=== PATIENT | female | born 1950 | race Caucasian/White ===

== ENCOUNTER 2018-10-14 17:27 | Inpatient (IN) | payer MEDICARE ==
[2018-10-14 19:11] LABS: WHITE BLOOD COUNT 5.8 10^3/ul (4.8-10.8)
[2018-10-14 19:11] LABS: ADD MAN DIFF? NO; BASOPHILS % 0.7 % (0.0-2.0); EOSINOPHILS # 0.1 10^3/ul (0.0-0.5); EOSINOPHILS % 1.9 % (0.0-7.0); HEMATOCRIT 41.4 % (37.0-47.0); HEMOGLOBIN 13.2 g/dl (12.0-16.0); LYMPHOCYTES # 2.3 10^3/ul (0.8-2.9); LYMPHOCYTES % 38.8 % (15.0-51.0); MEAN CORPUSCULAR HEMOGLOBIN 27.8 pg (29.0-33.0); MEAN CORPUSCULAR HGB CONC 31.9 g/dl (32.0-37.0); MEAN CORPUSCULAR VOLUME 87.2 fl (82.0-101.0); MEAN PLATELET VOLUME 11.3 fl (7.4-10.4); MONOCYTE # 0.3 10^3/ul (0.3-0.9); MONOCYTES % 4.8 % (0.0-11.0); NEUTROPHIL # 3.1 10^3/ul (1.6-7.5); NEUTROPHILS % 53.6 % (39.0-77.0); PLATELET COUNT 261 10^3/UL (140-415); RED BLOOD COUNT 4.75 10^6/ul (4.20-5.40); RED CELL DISTRIBUTION WIDTH 13.1 % (11.5-14.5)
[2018-10-14 19:29] LABS: ANION GAP 9 (5-13); BLOOD UREA NITROGEN 12 mg/dl (7-20); CALCIUM 9.8 mg/dl (8.4-10.2); CARBON DIOXIDE 29 mmol/L (21-31); CHLORIDE 105 mmol/L (97-110); CREATININE 1.02 mg/dl (0.44-1.00); Estimated GFR 54 mL/min (>60); GLUCOSE 170 mg/dl (70-220); SODIUM 143 mmol/L (135-144)
[2018-10-14 19:41] LABS: TROPONIN-I < 0.012 ng/ml (0.000-0.120)
[2018-10-14] MEDS ORDERED: ONDANSETRON 4 MG INJ IV (20:00)
[2018-10-14] MEDS: ASPIRIN 81 MG TAB PO (20:12)
[2018-10-14] MEDS ORDERED: NACL 0.9% 3 ML SYG IV (23:00)
[2018-10-14] MEDS ORDERED: NITROGLYCERIN (SL) 0.4 MG TAB SL (23:00)
[2018-10-14] MEDS: ALPRAZOLAM 1 MG TAB PO (23:50)
[2018-10-15 01:24] LABS: CREATINE KINASE 163 IU/L (23-200)
[2018-10-15 01:37] LABS: CK INDEX 1.2; CK-MB 1.95 ng/ml (0.0-2.4); TROPONIN-I < 0.012 ng/ml (0.000-0.120)
[2018-10-15 06:50] LABS: ADD MAN DIFF? NO
[2018-10-15 06:55] LABS: BASOPHIL # 0.1 10^3/ul (0.0-0.1); BASOPHILS % 0.9 % (0.0-2.0); EOSINOPHILS # 0.2 10^3/ul (0.0-0.5); EOSINOPHILS % 3.2 % (0.0-7.0); HEMATOCRIT 39.5 % (37.0-47.0); HEMOGLOBIN 12.5 g/dl (12.0-16.0); LYMPHOCYTES # 2.7 10^3/ul (0.8-2.9); LYMPHOCYTES % 50.5 % (15.0-51.0); MEAN CORPUSCULAR HEMOGLOBIN 27.6 pg (29.0-33.0); MEAN CORPUSCULAR HGB CONC 31.6 g/dl (32.0-37.0); MEAN CORPUSCULAR VOLUME 87.2 fl (82.0-101.0); MEAN PLATELET VOLUME 11.3 fl (7.4-10.4); MONOCYTE # 0.3 10^3/ul (0.3-0.9); MONOCYTES % 6.1 % (0.0-11.0); NEUTROPHIL # 2.1 10^3/ul (1.6-7.5); NEUTROPHILS % 39.1 % (39.0-77.0); PLATELET COUNT 248 10^3/UL (140-415); RED BLOOD COUNT 4.53 10^6/ul (4.20-5.40); RED CELL DISTRIBUTION WIDTH 13.2 % (11.5-14.5)
[2018-10-15 06:55] LABS: WHITE BLOOD COUNT 5.3 10^3/ul (4.8-10.8)
[2018-10-15] MEDS: PANTOPRAZOLE SODIUM 20 MG TABEC PO ×2 (06:55→18:37)
[2018-10-15] MEDS: ACETAMINOPHEN 325 MG TAB PO (07:04)
[2018-10-15 07:21] LABS: ALANINE AMINOTRANSFERASE 20 IU/L (13-69); ALBUMIN/GLOBULIN RATIO 1.42; ALKALINE PHOSPHATASE 61 IU/L (42-121); ANION GAP 9 (5-13); ASPARTATE AMINO TRANSFERASE 10 IU/L (15-46); BILIRUBIN,INDIRECT 0.2 mg/dl (0-1.1); BILIRUBIN,TOTAL 0.2 mg/dl (0.2-1.3); BLOOD UREA NITROGEN 15 mg/dl (7-20); CALCIUM 9.9 mg/dl (8.4-10.2); CARBON DIOXIDE 25 mmol/L (21-31); CHLORIDE 107 mmol/L (97-110); CHOL/HDL RATIO 5.2 RATIO; CHOLESTEROL 188 mg/dl (100-200); CREATININE 0.71 mg/dl (0.44-1.00); Estimated GFR > 60 mL/min (>60); GLUCOSE 111 mg/dl (70-220); HDL CHOLESTEROL 36 mg/dl (35-98); LDL CHOLESTEROL,CALCULATED 131 mg/dl; MAGNESIUM 2.2 mg/dl (1.7-2.5); POTASSIUM 4.4 mmol/L (3.5-5.1); SODIUM 141 mmol/L (135-144); TOTAL PROTEIN 6.8 g/dl (6.1-8.1); TRIGLYCERIDES 105 mg/dl (0-149)
[2018-10-15 07:27] LABS: HEMOGLOBIN A1C 5.9 % (0-5.9)
[2018-10-15 07:27] LABS: CREATINE KINASE 133 IU/L (23-200)
[2018-10-15 07:37] LABS: CK INDEX 1.1; CK-MB 1.48 ng/ml (0.0-2.4); TROPONIN-I < 0.012 ng/ml (0.000-0.120)
[2018-10-15 07:49] LABS: THYROID STIMULATING HORMONE 0.752 MIU/L (0.465-4.680)
[2018-10-15] MEDS: LISINOPRIL 10 MG TAB PO (10:54)
[2018-10-15] MEDS: ASPIRIN 81 MG TAB PO (10:54)
[2018-10-15] MEDS: HEPARIN 5,000 UNIT/1 ML VIAL SC ×2 (11:06→21:33)
[2018-10-15] MEDS: ACETYLCYSTEINE 600 MG CAP PO ×2 (15:44→21:22)
[2018-10-15] MEDS: RANOLAZINE (SR) 500 MG TAB PO (21:22)
[2018-10-15] MEDS: ATORVASTATIN 80 MG TAB PO (21:22)
[2018-10-15] MEDS: ALPRAZOLAM 1 MG TAB PO (22:32)
[2018-10-16] MEDS: PANTOPRAZOLE SODIUM 20 MG TABEC PO ×2 (05:28→18:23)
[2018-10-16 06:31] LABS: ADD MAN DIFF? NO
[2018-10-16 06:38] LABS: BASOPHIL # 0.1 10^3/ul (0.0-0.1); BASOPHILS % 0.9 % (0.0-2.0); EOSINOPHILS # 0.2 10^3/ul (0.0-0.5); EOSINOPHILS % 3.3 % (0.0-7.0); HEMATOCRIT 40.9 % (37.0-47.0); HEMOGLOBIN 12.8 g/dl (12.0-16.0); LYMPHOCYTES # 2.7 10^3/ul (0.8-2.9); LYMPHOCYTES % 49.4 % (15.0-51.0); MEAN CORPUSCULAR HEMOGLOBIN 27.4 pg (29.0-33.0); MEAN CORPUSCULAR HGB CONC 31.3 g/dl (32.0-37.0); MEAN CORPUSCULAR VOLUME 87.6 fl (82.0-101.0); MEAN PLATELET VOLUME 11.6 fl (7.4-10.4); MONOCYTE # 0.3 10^3/ul (0.3-0.9); MONOCYTES % 5.9 % (0.0-11.0); NEUTROPHIL # 2.2 10^3/ul (1.6-7.5); NEUTROPHILS % 40.1 % (39.0-77.0); PLATELET COUNT 245 10^3/UL (140-415); RED BLOOD COUNT 4.67 10^6/ul (4.20-5.40); RED CELL DISTRIBUTION WIDTH 13.2 % (11.5-14.5)
[2018-10-16 06:38] LABS: WHITE BLOOD COUNT 5.4 10^3/ul (4.8-10.8)
[2018-10-16 06:59] LABS: INR 0.98; PROTIME 13.1 Sec (11.9-14.9)
[2018-10-16 07:06] LABS: CREATINE KINASE 101 IU/L (23-200)
[2018-10-16 07:09] LABS: ALANINE AMINOTRANSFERASE 18 IU/L (13-69); ALBUMIN 3.9 g/dl (3.3-4.9); ALBUMIN/GLOBULIN RATIO 1.14; ALKALINE PHOSPHATASE 78 IU/L (42-121); ANION GAP 11 (5-13); ASPARTATE AMINO TRANSFERASE 12 IU/L (15-46); BILIRUBIN,INDIRECT 0.2 mg/dl (0-1.1); BILIRUBIN,TOTAL 0.2 mg/dl (0.2-1.3); BLOOD UREA NITROGEN 16 mg/dl (7-20); CALCIUM 9.4 mg/dl (8.4-10.2); CARBON DIOXIDE 23 mmol/L (21-31); CHLORIDE 108 mmol/L (97-110); CREATININE 0.74 mg/dl (0.44-1.00); Estimated GFR > 60 mL/min (>60); GLUCOSE 134 mg/dl (70-220); POTASSIUM 4.1 mmol/L (3.5-5.1); SODIUM 142 mmol/L (135-144); TOTAL PROTEIN 7.3 g/dl (6.1-8.1)
[2018-10-16 07:19] LABS: CK INDEX 1.4; CK-MB 1.39 ng/ml (0.0-2.4); TROPONIN-I < 0.012 ng/ml (0.000-0.120)
[2018-10-16] MEDS: ACETYLCYSTEINE 600 MG CAP PO ×2 (07:32→21:45)
[2018-10-16] MEDS: RANOLAZINE (SR) 500 MG TAB PO ×2 (07:32→21:44)
[2018-10-16] MEDS: METOPROLOL (XL) 25 MG TAB PO (07:32)
[2018-10-16] MEDS: LISINOPRIL 10 MG TAB PO (07:32)
[2018-10-16] MEDS: HEPARIN 5,000 UNIT/1 ML VIAL SC (07:32)
[2018-10-16] MEDS: ASPIRIN 81 MG TAB PO (09:12)
[2018-10-16] MEDS: DEXTROSE 5%-0.9% NACL 1,000 ML IV (14:36)
[2018-10-16] MEDS ORDERED: IODIXANOL LOCM 100 ML BTL (15:46)
[2018-10-16] MEDS ORDERED: LIDOCAINE 1% (MDV) 20 ML INJ (15:46)
[2018-10-16] MEDS ORDERED: NITROGLYCERIN (IC) 100 MCG/ML INJ (15:47)
[2018-10-16] MEDS ORDERED: MIDAZOLAM 1 MG/ML 2 ML INJ (15:47)
[2018-10-16] MEDS ORDERED: FENTAnyl 50 MCG/ML VIAL (15:47)
[2018-10-16] MEDS: HOLD all METFORMIN and METFORMIN CONTAINING medications for 48 hours post procedure. Chec XX (17:16)
[2018-10-16] MEDS: SOD CHLORIDE 0.9% 1,000 ML IV (17:19)
[2018-10-16] MEDS: ATORVASTATIN 80 MG TAB PO (21:45)
[2018-10-16] MEDS: ENOXAPARIN 80 MG/0.8 ML SYG SC (22:04)
[2018-10-17] MEDS: ACETAMINOPHEN 325 MG TAB PO (04:27)
[2018-10-17] MEDS: PANTOPRAZOLE SODIUM 20 MG TABEC PO ×2 (05:32→18:39)
[2018-10-17 05:56] LABS: ADD MAN DIFF? NO
[2018-10-17 06:06] LABS: BASOPHILS % 0.4 % (0.0-2.0); EOSINOPHILS # 0.2 10^3/ul (0.0-0.5); EOSINOPHILS % 2.3 % (0.0-7.0); HEMATOCRIT 39.2 % (37.0-47.0); HEMOGLOBIN 12.6 g/dl (12.0-16.0); LYMPHOCYTES % 44.3 % (15.0-51.0); MEAN CORPUSCULAR HEMOGLOBIN 27.8 pg (29.0-33.0); MEAN CORPUSCULAR HGB CONC 32.1 g/dl (32.0-37.0); MEAN CORPUSCULAR VOLUME 86.3 fl (82.0-101.0); MEAN PLATELET VOLUME 11.5 fl (7.4-10.4); MONOCYTE # 0.4 10^3/ul (0.3-0.9); MONOCYTES % 5.4 % (0.0-11.0); NEUTROPHIL # 3.2 10^3/ul (1.6-7.5); NEUTROPHILS % 47.5 % (39.0-77.0); PLATELET COUNT 236 10^3/UL (140-415); RED BLOOD COUNT 4.54 10^6/ul (4.20-5.40); RED CELL DISTRIBUTION WIDTH 13.2 % (11.5-14.5)
[2018-10-17 06:06] LABS: WHITE BLOOD COUNT 6.8 10^3/ul (4.8-10.8)
[2018-10-17 06:31] LABS: ALANINE AMINOTRANSFERASE 18 IU/L (13-69); ALBUMIN 3.8 g/dl (3.3-4.9); ALBUMIN/GLOBULIN RATIO 1.26; ALKALINE PHOSPHATASE 58 IU/L (42-121); ANION GAP 9 (5-13); ASPARTATE AMINO TRANSFERASE 10 IU/L (15-46); BILIRUBIN,INDIRECT 0.2 mg/dl (0-1.1); BILIRUBIN,TOTAL 0.2 mg/dl (0.2-1.3); BLOOD UREA NITROGEN 23 mg/dl (7-20); CALCIUM 9.7 mg/dl (8.4-10.2); CARBON DIOXIDE 23 mmol/L (21-31); CHLORIDE 109 mmol/L (97-110); CHOL/HDL RATIO 5.2 RATIO; CHOLESTEROL 164 mg/dl (100-200); CREATININE 0.91 mg/dl (0.44-1.00); Estimated GFR > 60 mL/min (>60); GLUCOSE 106 mg/dl (70-220); HDL CHOLESTEROL 31 mg/dl (35-98); LDL CHOLESTEROL,CALCULATED 111 mg/dl; SODIUM 141 mmol/L (135-144); TOTAL PROTEIN 6.8 g/dl (6.1-8.1); TRIGLYCERIDES 109 mg/dl (0-149)
[2018-10-17 06:36] LABS: B-TYPE NATRIURETIC PEPTIDE 310 PG/ML (0-125)
[2018-10-17] MEDS: ASPIRIN 81 MG TAB PO (09:12)
[2018-10-17] MEDS: ACETYLCYSTEINE 600 MG CAP PO ×2 (09:13→21:37)
[2018-10-17] MEDS: RANOLAZINE (SR) 500 MG TAB PO ×2 (09:13→21:37)
[2018-10-17] MEDS: METOPROLOL (XL) 25 MG TAB PO (09:13)
[2018-10-17] MEDS: LISINOPRIL 10 MG TAB PO (09:13)
[2018-10-17] MEDS: ENOXAPARIN 80 MG/0.8 ML SYG SC (09:28)
[2018-10-17] MEDS: ATORVASTATIN 80 MG TAB PO (21:37)
[2018-10-18 05:40] LABS: WHITE BLOOD COUNT 6.9 10^3/ul (4.8-10.8)
[2018-10-18 05:40] LABS: ADD MAN DIFF? NO; BASOPHIL # 0.1 10^3/ul (0.0-0.1); BASOPHILS % 0.7 % (0.0-2.0); EOSINOPHILS # 0.2 10^3/ul (0.0-0.5); EOSINOPHILS % 2.3 % (0.0-7.0); HEMATOCRIT 42.5 % (37.0-47.0); HEMOGLOBIN 13.5 g/dl (12.0-16.0); LYMPHOCYTES # 2.8 10^3/ul (0.8-2.9); LYMPHOCYTES % 41.3 % (15.0-51.0); MEAN CORPUSCULAR HEMOGLOBIN 27.4 pg (29.0-33.0); MEAN CORPUSCULAR HGB CONC 31.8 g/dl (32.0-37.0); MEAN CORPUSCULAR VOLUME 86.4 fl (82.0-101.0); MEAN PLATELET VOLUME 11.4 fl (7.4-10.4); MONOCYTE # 0.3 10^3/ul (0.3-0.9); MONOCYTES % 4.7 % (0.0-11.0); NEUTROPHIL # 3.5 10^3/ul (1.6-7.5); NEUTROPHILS % 50.9 % (39.0-77.0); PLATELET COUNT 249 10^3/UL (140-415); RED BLOOD COUNT 4.92 10^6/ul (4.20-5.40); RED CELL DISTRIBUTION WIDTH 13.2 % (11.5-14.5)
[2018-10-18] MEDS: PANTOPRAZOLE SODIUM 20 MG TABEC PO ×2 (05:51→18:00)
[2018-10-18 06:01] LABS: ANION GAP 10 (5-13); BLOOD UREA NITROGEN 20 mg/dl (7-20); CALCIUM 10.2 mg/dl (8.4-10.2); CARBON DIOXIDE 25 mmol/L (21-31); CHLORIDE 106 mmol/L (97-110); CREATININE 0.87 mg/dl (0.44-1.00); Estimated GFR > 60 mL/min (>60); GLUCOSE 110 mg/dl (70-220); PHOSPHORUS 4.4 mg/dl (2.5-4.9); POTASSIUM 4.2 mmol/L (3.5-5.1); SODIUM 141 mmol/L (135-144)
[2018-10-18 06:03] LABS: INR 0.97
[2018-10-18 06:27] LABS: IRON 70 ug/dl (35-150)
[2018-10-18 06:36] LABS: % IRON SATURATION 18 % SAT (22-52); TOTAL IRON BINDING CAPACITY 380 ug/dl (241-421)
[2018-10-18] MEDS ORDERED: INSULIN HUMAN REGULAR 100 UNIT in SOD CHLORIDE 0.9% 99 ML IV (07:00)
[2018-10-18] MEDS ORDERED: EPINEPHrine 4 MG in DEXTROSE 5% 246 ML IV (07:00)
[2018-10-18] MEDS ORDERED: PHENYLephrine 20MG IN 250 ML 250 ML IV (07:00)
[2018-10-18] MEDS ORDERED: NITROGLYCERIN 50 MG/D5W 250 ML BTL (07:12)
[2018-10-18] MEDS ORDERED: DOPamine-D5W 1.6 MG/ML 250 ML (07:12)
[2018-10-18] MEDS ORDERED: TRANEXAMIC ACID 1,000 MG/10 ML VIAL (07:12)
[2018-10-18] MEDS ORDERED: MIDAZOLAM 5 ML ×2 (07:13→10:05)
[2018-10-18] MEDS ORDERED: CEFAZOLIN 1 GM INJ ×3 (08:26→11:39)
[2018-10-18] MEDS ORDERED: POTASSIUM CHLORIDE 40 MEQ INJ (08:31)
[2018-10-18] MEDS ORDERED: ALBUMIN HUMAN 25% 200 ML (08:31)
[2018-10-18] MEDS ORDERED: LIDOCAINE 2% (SDV) 5 ML INJ ×2 (08:31→13:22)
[2018-10-18] MEDS ORDERED: PHENYLephrine 10 MG INJ (08:31)
[2018-10-18] MEDS ORDERED: CA CHLORIDE 10% 10 ML SYRINGE (08:31)
[2018-10-18] MEDS ORDERED: MAGNESIUM SULFATE (MG) 50% 10 ML INJ (08:31)
[2018-10-18] MEDS ORDERED: HEPARIN 1000 UNITS/ML 10 ML INJ ×2 (08:31→09:40)
[2018-10-18] MEDS ORDERED: FUROSEMIDE 20 MG INJ ×2 (08:31→13:13)
[2018-10-18] MEDS ORDERED: MANNITOL 20% 500 ML (08:31)
[2018-10-18] MEDS ORDERED: NA BICARBONATE 8.4% 50 ML SYG ×2 (08:31→10:48)
[2018-10-18] MEDS ORDERED: AMINOCAPROIC ACID 5 GM INJ (08:31)
[2018-10-18] MEDS ORDERED: NORepinephrine 4 MG INJ (08:32)
[2018-10-18] MEDS: LISINOPRIL 10 MG TAB PO (09:00)
[2018-10-18] MEDS: METOPROLOL (XL) 25 MG TAB PO (09:00)
[2018-10-18] MEDS: ACETYLCYSTEINE 600 MG CAP PO (09:00)
[2018-10-18] MEDS: RANOLAZINE (SR) 500 MG TAB PO ×2 (09:00→21:00)
[2018-10-18] MEDS: PAPAVERINE 60 MG INJ (09:09)
[2018-10-18] MEDS: HEPARIN 1000 UNITS/ML 10 ML INJ (09:10)
[2018-10-18] MEDS: GELATIN SIZE 100 SPONGE (09:11)
[2018-10-18] MEDS: THROMBIN 20,000 UNIT VIAL (09:11)
[2018-10-18] MEDS: VANCOMYCIN 1 GM INJ (09:12)
[2018-10-18] MEDS ORDERED: VANCOMYCIN 1 GM INJ (09:48)
[2018-10-18] MEDS ORDERED: PROTAMINE 250 MG INJ (12:46)
[2018-10-18] MEDS ORDERED: THROMBIN 20,000 UNIT VIAL (13:05)
[2018-10-18] MEDS ORDERED: SURGIFOAM POWDER 1 GM KIT (13:05)
[2018-10-18] MEDS ORDERED: ETOMIDATE 20 MG INJ (13:22)
[2018-10-18] MEDS ORDERED: ROCURONIUM 50 MG INJ (13:22)
[2018-10-18] MEDS ORDERED: MEPERIDINE 25 MG INJ IV (15:00)
[2018-10-18] MEDS ORDERED: DIPHENHYDRAMINE 50 MG INJ IV (15:00)
[2018-10-18] MEDS ORDERED: ALBUMIN HUMAN 5% 250 ML IV (15:00)
[2018-10-18] MEDS ORDERED: ONDANSETRON 4 MG INJ IV ×2 (15:00→16:30)
[2018-10-18] MEDS ORDERED: MIDAZOLAM 1 MG/ML 2 ML INJ IV (15:00)
[2018-10-18] MEDS ORDERED: hydrALAzine 20 MG INJ IV (15:00)
[2018-10-18] MEDS ORDERED: EPHEDrine 25 MG/5 ML SYG IV (15:00)
[2018-10-18] MEDS ORDERED: FENTAnyl 50 MCG/ML VIAL IV (15:00)
[2018-10-18] MEDS ORDERED: LORAZEPAM 2 MG INJ IV (15:00)
[2018-10-18] MEDS: NITROGLYCERIN 50 MG/D5W (PMX) 250 ML IV (15:09)
[2018-10-18] MEDS: DOPamine-D5W 1.6 MG/ML 250 ML IV (15:09)
[2018-10-18 15:24] LABS: ANION GAP 11 (5-13); BLOOD UREA NITROGEN 17 mg/dl (7-20); CARBON DIOXIDE 25 mmol/L (21-31); CHLORIDE 111 mmol/L (97-110); CREATININE 0.87 mg/dl (0.44-1.00); Estimated GFR > 60 mL/min (>60); GLUCOSE 123 mg/dl (70-220); MAGNESIUM 3.1 mg/dl (1.7-2.5); PHOSPHORUS 3.9 mg/dl (2.5-4.9); POTASSIUM 3.6 mmol/L (3.5-5.1); SODIUM 147 mmol/L (135-144)
[2018-10-18 15:26] LABS: INR 1.32; PARTIAL THROMBOPLASTIN TIME 29.2 Sec (23.0-35.0); PROTIME 16.5 Sec (11.9-14.9); PT RATIO 1.3
[2018-10-18 15:50] LABS: AADO2 Arterial 367.1 mmHg (7.0-24.0); Arterial Base Excess 1.3 mmol/L (-3.0-3); Arterial Blood Gas Oxygen Sat 95.5 mmHG (95.0-98.0); Arterial COHb 0.1 % (0.0-3.0); Arterial Fraction of Oxyhgb 95.1 % (93.0-99.0); Arterial HCO3 26.5 mmol/L (22.0-26.0); Arterial MetHb 0.3 % (0.0-1.5); Arterial pCO2 44.3 mmhg (35-45); MODE VENT - AC; Site A-Line
[2018-10-18 15:57] LABS: HEMATOCRIT 37.6 % (37.0-47.0); HEMOGLOBIN 12.1 g/dl (12.0-16.0); MEAN CORPUSCULAR HEMOGLOBIN 27.7 pg (29.0-33.0); MEAN CORPUSCULAR HGB CONC 32.2 g/dl (32.0-37.0); MEAN PLATELET VOLUME 11.1 fl (7.4-10.4); PLATELET COUNT 139 10^3/UL (140-415); POSITIVE DIFF @See below; RED BLOOD COUNT 4.37 10^6/ul (4.20-5.40)
[2018-10-18 15:57] LABS: WHITE BLOOD COUNT 11.1 10^3/ul (4.8-10.8)
[2018-10-18 15:58] LABS: ADD MAN DIFF? YES; MODE VENT - AC; MetHgb Mixed Venous 0.4 %; Mixed Venous COHb 0.2 %; Mixed Venous Fraction OxyHgb 61.4 %; Mixed Venous Oxygen Sat 61.8 mmHG (65.0-75.0); Mixed Venous Total Hemglobin 13.2 g/dl; Sample Type BLMV; Site VENOUS LINE
[2018-10-18] MEDS: FENTAnyl 50 MCG/ML VIAL IV (16:03)
[2018-10-18] MEDS ORDERED: HYDROmorphONE 0.5 MG/0.5 ML SYG IV (16:30)
[2018-10-18] MEDS ORDERED: MAGNESIUM SULFATE 1 GM/D5W 100 ML IVPB (16:30)
[2018-10-18] MEDS ORDERED: ACETAMINOPHEN 650 MG SUPP PR (16:30)
[2018-10-18 16:32] LABS: ANISOCYTOSIS 3+ (0-0); BAND NEUTROPHILS #M 1.7 10^3/ul (0.0-0.6); BAND NEUTROPHILS % (M) 16 % (0-4); GIANT THROMBO% (M) 1 % (0-0); LYMPHOCYTES #M 3.7 10^3/ul (0.8-2.9); LYMPHOCYTES % (M) 34 % (15-51); MICROCYTOSIS 3+ (0-0); PLATELET ESTIMATE DECREASED; PLATELET MORPHOLOGY COMMENT @See below; POIKILOCYTOSIS 1+ (0-0); POLYCHROMASIA 1+ (0-0); REACTIVE LYMPHOCYTES #M 0.4 10^3/ul (0.0-0.0); REACTIVE LYMPHOCYTES% (M) 4 % (0-0); SEG NEUT #M 5.3 10^3/ul (1.6-7.5); SEGMENTED NEUTROPHILS (M) % 46 % (39-77); SMUDGE%M 7 % (0-0)
[2018-10-18] MEDS: HYDROmorphONE 0.5 MG/0.5 ML SYG IV ×3 (16:48→21:19)
[2018-10-18] MEDS: POTASSIUM CHLORIDE 50 ML IVPB ×3 (16:52→18:45)
[2018-10-18] MEDS: INSULIN ASPART [NOVOLOG] 3 ML PEN SC ×2 (17:00→21:54)
[2018-10-18] MEDS: CEFAZOLIN 1 GM/50 ML (PMX) 50 ML IVPB (17:17)
[2018-10-18] MEDS: ALBUMIN HUMAN 5% 250 ML IV ×2 (17:19→17:42)
[2018-10-18] MEDS: morphine 2 MG INJ IV ×3 (17:24→18:56)
[2018-10-18] MEDS: LIDOCAINE 5% PATCH TD (18:25)
[2018-10-18] MEDS: POTASSIUM CHLORIDE 40 MEQ, CALCIUM CHLORIDE 10% 1 GM in DEXTROSE 5%-0.225% NACL 1,000 ML IV (18:42)
[2018-10-18] MEDS: ATORVASTATIN 80 MG TAB PO (21:00)
[2018-10-18 21:14] LABS: ADD MAN DIFF? NO
[2018-10-18 21:18] LABS: WHITE BLOOD COUNT 9.6 10^3/ul (4.8-10.8)
[2018-10-18 21:18] LABS: BASOPHILS % 0.3 % (0.0-2.0); EOSINOPHILS % 0.2 % (0.0-7.0); HEMOGLOBIN 10.5 g/dl (12.0-16.0); LYMPHOCYTES # 0.9 10^3/ul (0.8-2.9); MEAN CORPUSCULAR HEMOGLOBIN 27.9 pg (29.0-33.0); MEAN CORPUSCULAR HGB CONC 31.8 g/dl (32.0-37.0); MEAN CORPUSCULAR VOLUME 87.8 fl (82.0-101.0); MEAN PLATELET VOLUME 10.8 fl (7.4-10.4); MONOCYTE # 0.6 10^3/ul (0.3-0.9); MONOCYTES % 5.8 % (0.0-11.0); NEUTROPHIL # 8.1 10^3/ul (1.6-7.5); NEUTROPHILS % 84.1 % (39.0-77.0); PLATELET COUNT 148 10^3/UL (140-415); RED BLOOD COUNT 3.76 10^6/ul (4.20-5.40); RED CELL DISTRIBUTION WIDTH 13.4 % (11.5-14.5)
[2018-10-18] MEDS: FAMOTIDINE 20 MG INJ IV (21:18)
[2018-10-18 21:37] LABS: INR 1.18; PROTIME 15.1 Sec (11.9-14.9); PT RATIO 1.2
[2018-10-18 21:38] LABS: PARTIAL THROMBOPLASTIN TIME 32.8 Sec (23.0-35.0)
[2018-10-18 21:44] LABS: ANION GAP 7 (5-13); BLOOD UREA NITROGEN 16 mg/dl (7-20); CALCIUM 8.6 mg/dl (8.4-10.2); CARBON DIOXIDE 25 mmol/L (21-31); CHLORIDE 115 mmol/L (97-110); CREATININE 0.93 mg/dl (0.44-1.00); Estimated GFR > 60 mL/min (>60); GLUCOSE 197 mg/dl (70-220); MAGNESIUM 2.6 mg/dl (1.7-2.5); PHOSPHORUS 3.4 mg/dl (2.5-4.9); POTASSIUM 4.8 mmol/L (3.5-5.1); SODIUM 147 mmol/L (135-144)
[2018-10-19] MEDS: HYDROmorphONE 0.5 MG/0.5 ML SYG IV ×3 (00:11→12:08)
[2018-10-19] MEDS: CEFAZOLIN 1 GM/50 ML (PMX) 50 ML IVPB ×2 (00:56→09:34)
[2018-10-19] MEDS ORDERED: DEXTROSE 50% 50 ML SYRINGE IV ×4 (01:00→15:30)
[2018-10-19] MEDS: INSULIN ASPART [NOVOLOG] 3 ML PEN SC ×6 (01:00→20:47)
[2018-10-19] MEDS: ACCU-CHEK XX ×14 (01:05→14:09)
[2018-10-19] MEDS: INSULIN HUMAN REGULAR 100 UNIT in SOD CHLORIDE 0.9% 99 ML IV (01:35)
[2018-10-19] MEDS: ONDANSETRON 4 MG INJ IV ×2 (01:53→08:21)
[2018-10-19] MEDS: OXYCODONE/ACETAMINOPHEN (5/325) TAB PO ×6 (03:31→22:56)
[2018-10-19 04:37] LABS: Arterial Base Excess -0.1 mmol/L (-3.0-3); Arterial Blood Gas Oxygen Sat 94.5 mmHG (95.0-98.0); Arterial COHb 0.3 % (0.0-3.0); Arterial HCO3 26.1 mmol/L (22.0-26.0); Arterial MetHb 0.2 % (0.0-1.5); Arterial pCO2 49.4 mmhg (35-45); Blood Gas PS 12; MODE NASAL CANNULA; MODE VENT - CPAP; MetHgb Mixed Venous 0.4 %; Mixed Venous COHb 0.3 %; Mixed Venous Fraction OxyHgb 58.3 %; Mixed Venous Oxygen Sat 58.7 mmHG (65.0-75.0); Mixed Venous Total Hemglobin 11.7 g/dl; Sample Type BLMV; Site A-Line; Site VENOUS LINE
[2018-10-19 05:06] LABS: AADO2 Arterial 82.1 mmHg (7.0-24.0); Arterial Base Excess 0.1 mmol/L (-3.0-3); Arterial Blood Gas Oxygen Sat 94.5 mmHG (95.0-98.0); Arterial COHb 0.1 % (0.0-3.0); Arterial Fraction of Oxyhgb 94.2 % (93.0-99.0); Arterial HCO3 25.8 mmol/L (22.0-26.0); Arterial MetHb 0.2 % (0.0-1.5); Arterial pCO2 46.3 mmhg (35-45); MODE NASAL CANNULA; Site A-Line
[2018-10-19 05:11] LABS: ADD MAN DIFF? NO
[2018-10-19 05:18] LABS: WHITE BLOOD COUNT 8.7 10^3/ul (4.8-10.8)
[2018-10-19 05:18] LABS: BASOPHILS % 0.2 % (0.0-2.0); HEMATOCRIT 34.3 % (37.0-47.0); HEMOGLOBIN 10.5 g/dl (12.0-16.0); LYMPHOCYTES # 0.8 10^3/ul (0.8-2.9); LYMPHOCYTES % 9.2 % (15.0-51.0); MEAN CORPUSCULAR HEMOGLOBIN 27.3 pg (29.0-33.0); MEAN CORPUSCULAR HGB CONC 30.6 g/dl (32.0-37.0); MEAN CORPUSCULAR VOLUME 89.1 fl (82.0-101.0); MEAN PLATELET VOLUME 11.6 fl (7.4-10.4); MONOCYTE # 0.6 10^3/ul (0.3-0.9); MONOCYTES % 6.5 % (0.0-11.0); NEUTROPHIL # 7.3 10^3/ul (1.6-7.5); NEUTROPHILS % 83.6 % (39.0-77.0); PLATELET COUNT 159 10^3/UL (140-415); RED BLOOD COUNT 3.85 10^6/ul (4.20-5.40); RED CELL DISTRIBUTION WIDTH 13.7 % (11.5-14.5)
[2018-10-19 05:40] LABS: INR 1.13; PROTIME 14.6 Sec (11.9-14.9); PT RATIO 1.1
[2018-10-19 05:41] LABS: PARTIAL THROMBOPLASTIN TIME 35.9 Sec (23.0-35.0)
[2018-10-19 05:42] LABS: ANION GAP 9 (5-13); BLOOD UREA NITROGEN 19 mg/dl (7-20); CALCIUM 9.1 mg/dl (8.4-10.2); CARBON DIOXIDE 26 mmol/L (21-31); CHLORIDE 112 mmol/L (97-110); CREATININE 1.05 mg/dl (0.44-1.00); Estimated GFR 52 mL/min (>60); GLUCOSE 141 mg/dl (70-220); MAGNESIUM 2.5 mg/dl (1.7-2.5); POTASSIUM 4.8 mmol/L (3.5-5.1); SODIUM 147 mmol/L (135-144)
[2018-10-19] MEDS: PANTOPRAZOLE SODIUM 20 MG TABEC PO ×2 (06:12→17:51)
[2018-10-19] MEDS: ALBUMIN HUMAN 5% 250 ML IV (06:44)
[2018-10-19] MEDS: FAMOTIDINE 20 MG INJ IV (07:37)
[2018-10-19] MEDS: ACETAMINOPHEN 325 MG TAB PO (08:08)
[2018-10-19] MEDS: METOPROLOL (XL) 25 MG TAB PO ×2 (09:00→20:43)
[2018-10-19] MEDS: POTASSIUM CHLORIDE 40 MEQ, CALCIUM CHLORIDE 10% 1 GM in DEXTROSE 5%-0.225% NACL 1,000 ML IV (09:22)
[2018-10-19] MEDS: ASPIRIN 325 MG TAB PO (09:34)
[2018-10-19] MEDS: HYDROmorphONE 1 MG/ML SYG IV (09:58)
[2018-10-19] MEDS: FUROSEMIDE 20 MG INJ IV (10:10)
[2018-10-19] MEDS: LIDOCAINE 5% PATCH TD ×2 (14:12→19:55)
[2018-10-19 14:36] LABS: ANION GAP 11 (5-13); BLOOD UREA NITROGEN 21 mg/dl (7-20); CALCIUM 9.1 mg/dl (8.4-10.2); CARBON DIOXIDE 25 mmol/L (21-31); CHLORIDE 107 mmol/L (97-110); CREATININE 1.11 mg/dl (0.44-1.00); Estimated GFR 49 mL/min (>60); GLUCOSE 140 mg/dl (70-220); POTASSIUM 4.2 mmol/L (3.5-5.1); SODIUM 143 mmol/L (135-144)
[2018-10-19] MEDS ORDERED: GLUCOSE GEL 15 GRAM TUBE BUCCAL (15:30)
[2018-10-19] MEDS ORDERED: GLUCOSE GEL 15 GRAM TUBE PO ×2 (15:30)
[2018-10-19] MEDS ORDERED: GLUCAGON 1 MG INJ IM (15:30)
[2018-10-19] MEDS: morphine 4 MG/ML VIAL IV (17:10)
[2018-10-19] MEDS: ATORVASTATIN 80 MG TAB PO (20:44)
[2018-10-19] MEDS: ALBUMIN HUMAN 5% 500 ML IV (22:07)
[2018-10-20] MEDS: INSULIN ASPART [NOVOLOG] 3 ML PEN SC ×6 (01:00→20:58)
[2018-10-20] MEDS: OXYCODONE/ACETAMINOPHEN (5/325) TAB PO ×3 (01:25→08:41)
[2018-10-20] MEDS: POTASSIUM CHLORIDE 40 MEQ, CALCIUM CHLORIDE 10% 1 GM in DEXTROSE 5%-0.225% NACL 1,000 ML IV ×2 (02:32→10:27)
[2018-10-20 05:10] LABS: ADD MAN DIFF? NO
[2018-10-20 05:15] LABS: BASOPHILS % 0.3 % (0.0-2.0); EOSINOPHILS % 0.1 % (0.0-7.0); HEMATOCRIT 26.5 % (37.0-47.0); HEMOGLOBIN 8.1 g/dl (12.0-16.0); LYMPHOCYTES # 1.7 10^3/ul (0.8-2.9); LYMPHOCYTES % 23.1 % (15.0-51.0); MEAN CORPUSCULAR HEMOGLOBIN 27.4 pg (29.0-33.0); MEAN CORPUSCULAR HGB CONC 30.6 g/dl (32.0-37.0); MEAN CORPUSCULAR VOLUME 89.5 fl (82.0-101.0); MEAN PLATELET VOLUME 11.9 fl (7.4-10.4); MONOCYTE # 0.4 10^3/ul (0.3-0.9); MONOCYTES % 5.5 % (0.0-11.0); NEUTROPHIL # 5.3 10^3/ul (1.6-7.5); NEUTROPHILS % 70.7 % (39.0-77.0); PLATELET COUNT 113 10^3/UL (140-415); RED BLOOD COUNT 2.96 10^6/ul (4.20-5.40); RED CELL DISTRIBUTION WIDTH 13.5 % (11.5-14.5)
[2018-10-20 05:15] LABS: WHITE BLOOD COUNT 7.4 10^3/ul (4.8-10.8)
[2018-10-20] MEDS: PANTOPRAZOLE SODIUM 20 MG TABEC PO ×2 (05:27→17:28)
[2018-10-20] MEDS: morphine 2 MG INJ IV ×3 (05:33→21:44)
[2018-10-20 05:46] LABS: ALANINE AMINOTRANSFERASE 22 IU/L (13-69); ALBUMIN 3.7 g/dl (3.3-4.9); ALBUMIN/GLOBULIN RATIO 1.54; ALKALINE PHOSPHATASE 38 IU/L (42-121); ANION GAP 8 (5-13); ASPARTATE AMINO TRANSFERASE 22 IU/L (15-46); BILIRUBIN,INDIRECT 0.6 mg/dl (0-1.1); BILIRUBIN,TOTAL 0.6 mg/dl (0.2-1.3); BLOOD UREA NITROGEN 21 mg/dl (7-20); CARBON DIOXIDE 27 mmol/L (21-31); CHLORIDE 106 mmol/L (97-110); CREATININE 0.84 mg/dl (0.44-1.00); Estimated GFR > 60 mL/min (>60); GLUCOSE 131 mg/dl (70-220); MAGNESIUM 2.4 mg/dl (1.7-2.5); POTASSIUM 4.4 mmol/L (3.5-5.1); SODIUM 141 mmol/L (135-144); TOTAL PROTEIN 6.1 g/dl (6.1-8.1)
[2018-10-20] MEDS: ASPIRIN 325 MG TAB PO (08:36)
[2018-10-20] MEDS: METOPROLOL (XL) 25 MG TAB PO ×2 (08:37→20:55)
[2018-10-20] MEDS: LIDOCAINE 5% PATCH TD (08:40)
[2018-10-20] MEDS: SOD FERRIC GLUC COMPLX 125 MG in SOD CHLORIDE 0.9% 100 ML IVPB (12:44)
[2018-10-20 13:34] LABS: ADD UMIC YES; UR ASCORBIC ACID NEGATIVE (NEGATIVE); UR BACTERIA FEW /HPF (NONE SEEN); UR BILIRUBIN (Dip) NEGATIVE (NEGATIVE); UR BLOOD (Dip) NEGATIVE (NEGATIVE); UR CLARITY CLEAR (CLEAR); UR COLOR YELLOW (YELLOW); UR GLUCOSE (Dip) NEGATIVE (NEGATIVE); UR KETONES (Dip) NEGATIVE (NEGATIVE); UR LEUKOCYTE ESTERASE (Dip) TRACE Leu/ul (NEGATIVE); UR NITRITE (Dip) NEGATIVE (NEGATIVE); UR RBC 3 /HPF (0-5); UR SPECIFIC GRAVITY (Dip) 1.029 (1.003-1.030); UR SQUAMOUS EPITHELIAL CELL FEW /HPF (FEW); UR TOTAL PROTEIN (Dip) NEGATIVE (NEGATIVE); UR UROBILINOGEN (Dip) NEGATIVE (NEGATIVE); UR WBC 10 /HPF (0-5)
[2018-10-20 14:05] LABS: CREATININE,URINE RANDOM 147.26 mg/dl (20-320)
[2018-10-20 14:06] LABS: SODIUM,URINE RANDOM < 13 mmol/L (30-90)
[2018-10-20] MEDS: ONDANSETRON 4 MG INJ IV (17:32)
[2018-10-20] MEDS: ATORVASTATIN 80 MG TAB PO (20:54)
[2018-10-21] MEDS: INSULIN ASPART [NOVOLOG] 3 ML PEN SC ×6 (01:16→21:00)
[2018-10-21] MEDS: morphine 2 MG INJ IV (04:48)
[2018-10-21] MEDS: PANTOPRAZOLE SODIUM 20 MG TABEC PO ×2 (04:58→18:03)
[2018-10-21 05:02] LABS: ADD MAN DIFF? NO
[2018-10-21 05:10] LABS: BASOPHILS % 0.4 % (0.0-2.0); EOSINOPHILS # 0.1 10^3/ul (0.0-0.5); HEMATOCRIT 26.3 % (37.0-47.0); HEMOGLOBIN 8.2 g/dl (12.0-16.0); MEAN CORPUSCULAR HEMOGLOBIN 27.3 pg (29.0-33.0); MEAN CORPUSCULAR HGB CONC 31.2 g/dl (32.0-37.0); MEAN CORPUSCULAR VOLUME 87.7 fl (82.0-101.0); MEAN PLATELET VOLUME 12.2 fl (7.4-10.4); MONOCYTE # 0.4 10^3/ul (0.3-0.9); MONOCYTES % 5.4 % (0.0-11.0); NEUTROPHIL # 5.2 10^3/ul (1.6-7.5); NEUTROPHILS % 66.7 % (39.0-77.0); PLATELET COUNT 128 10^3/UL (140-415); RED CELL DISTRIBUTION WIDTH 13.3 % (11.5-14.5)
[2018-10-21 05:10] LABS: WHITE BLOOD COUNT 7.8 10^3/ul (4.8-10.8)
[2018-10-21 05:54] LABS: ANION GAP 5 (5-13); BLOOD UREA NITROGEN 15 mg/dl (7-20); CARBON DIOXIDE 30 mmol/L (21-31); CHLORIDE 104 mmol/L (97-110); CREATININE 0.69 mg/dl (0.44-1.00); Estimated GFR > 60 mL/min (>60); GLUCOSE 143 mg/dl (70-220); MAGNESIUM 2.4 mg/dl (1.7-2.5); POTASSIUM 4.3 mmol/L (3.5-5.1); SODIUM 139 mmol/L (135-144)
[2018-10-21] MEDS: ASPIRIN 325 MG TAB PO (09:32)
[2018-10-21] MEDS: METOPROLOL (XL) 25 MG TAB PO ×2 (09:32→20:49)
[2018-10-21] MEDS: LIDOCAINE 5% PATCH TD (09:33)
[2018-10-21] MEDS: POTASSIUM CHLORIDE 40 MEQ, CALCIUM CHLORIDE 10% 1 GM in DEXTROSE 5%-0.225% NACL 1,000 ML IV (13:16)
[2018-10-21] MEDS: SOD FERRIC GLUC COMPLX 125 MG in SOD CHLORIDE 0.9% 100 ML IVPB (13:16)
[2018-10-21 14:26] LABS: CREATININE, RANDOM URINE 143 mg/dL (20-275); MICROALBUMIN 2.3 mg/dL; MICROALBUMIN/CREATININE RATIO 16 (<30)
[2018-10-21] MEDS: ATORVASTATIN 80 MG TAB PO (20:48)
[2018-10-22] MEDS: INSULIN ASPART [NOVOLOG] 3 ML PEN SC ×6 (01:00→20:27)
[2018-10-22] MEDS: morphine 2 MG INJ IV ×2 (02:52→23:55)
[2018-10-22 05:17] LABS: ADD MAN DIFF? NO
[2018-10-22 05:20] LABS: BASOPHILS % 0.5 % (0.0-2.0); EOSINOPHILS # 0.1 10^3/ul (0.0-0.5); EOSINOPHILS % 1.3 % (0.0-7.0); HEMATOCRIT 27.7 % (37.0-47.0); HEMOGLOBIN 8.5 g/dl (12.0-16.0); LYMPHOCYTES # 2.3 10^3/ul (0.8-2.9); MEAN CORPUSCULAR HEMOGLOBIN 27.2 pg (29.0-33.0); MEAN CORPUSCULAR HGB CONC 30.7 g/dl (32.0-37.0); MEAN CORPUSCULAR VOLUME 88.8 fl (82.0-101.0); MEAN PLATELET VOLUME 11.3 fl (7.4-10.4); MONOCYTE # 0.5 10^3/ul (0.3-0.9); MONOCYTES % 6.2 % (0.0-11.0); NEUTROPHIL # 4.8 10^3/ul (1.6-7.5); NEUTROPHILS % 62.2 % (39.0-77.0); NUCLEATED RED BLOOD CELLS% 0.5 /100WBC (0.0-0.0); PLATELET COUNT 175 10^3/UL (140-415); RED BLOOD COUNT 3.12 10^6/ul (4.20-5.40); RED CELL DISTRIBUTION WIDTH 13.4 % (11.5-14.5)
[2018-10-22 05:20] LABS: WHITE BLOOD COUNT 7.8 10^3/ul (4.8-10.8)
[2018-10-22 05:43] LABS: ANION GAP 4 (5-13); BLOOD UREA NITROGEN 15 mg/dl (7-20); CALCIUM 8.7 mg/dl (8.4-10.2); CARBON DIOXIDE 30 mmol/L (21-31); CHLORIDE 106 mmol/L (97-110); CREATININE 0.72 mg/dl (0.44-1.00); Estimated GFR > 60 mL/min (>60); GLUCOSE 118 mg/dl (70-220); SODIUM 140 mmol/L (135-144)
[2018-10-22] MEDS: PANTOPRAZOLE SODIUM 20 MG TABEC PO ×2 (06:29→17:50)
[2018-10-22] MEDS: METOPROLOL (XL) 25 MG TAB PO ×2 (08:50→20:27)
[2018-10-22] MEDS: ASPIRIN 325 MG TAB PO (08:50)
[2018-10-22] MEDS: LIDOCAINE 5% PATCH TD (08:53)
[2018-10-22] MEDS: SOD FERRIC GLUC COMPLX 125 MG in SOD CHLORIDE 0.9% 100 ML IVPB (15:34)
[2018-10-22] MEDS: ATORVASTATIN 80 MG TAB PO (20:26)
[2018-10-23] MEDS: INSULIN ASPART [NOVOLOG] 3 ML PEN SC ×6 (01:00→21:00)
[2018-10-23 05:27] LABS: ADD MAN DIFF? NO
[2018-10-23] MEDS: PANTOPRAZOLE SODIUM 20 MG TABEC PO ×2 (05:27→18:00)
[2018-10-23 05:41] LABS: BASOPHILS % 0.5 % (0.0-2.0); EOSINOPHILS # 0.1 10^3/ul (0.0-0.5); EOSINOPHILS % 1.9 % (0.0-7.0); HEMATOCRIT 27.7 % (37.0-47.0); HEMOGLOBIN 8.7 g/dl (12.0-16.0); LYMPHOCYTES # 2.4 10^3/ul (0.8-2.9); LYMPHOCYTES % 32.1 % (15.0-51.0); MEAN CORPUSCULAR HEMOGLOBIN 27.9 pg (29.0-33.0); MEAN CORPUSCULAR HGB CONC 31.4 g/dl (32.0-37.0); MEAN CORPUSCULAR VOLUME 88.8 fl (82.0-101.0); MEAN PLATELET VOLUME 11.3 fl (7.4-10.4); MONOCYTE # 0.4 10^3/ul (0.3-0.9); MONOCYTES % 4.8 % (0.0-11.0); NEUTROPHIL # 4.5 10^3/ul (1.6-7.5); NEUTROPHILS % 59.9 % (39.0-77.0); NUCLEATED RED BLOOD CELLS # 0.1 10^3/ul (0.0-0.0); NUCLEATED RED BLOOD CELLS% 1.5 /100WBC (0.0-0.0); PLATELET COUNT 205 10^3/UL (140-415); RED BLOOD COUNT 3.12 10^6/ul (4.20-5.40); RED CELL DISTRIBUTION WIDTH 13.3 % (11.5-14.5)
[2018-10-23 05:41] LABS: WHITE BLOOD COUNT 7.6 10^3/ul (4.8-10.8)
[2018-10-23 05:58] LABS: ANION GAP 4 (5-13); BLOOD UREA NITROGEN 16 mg/dl (7-20); CALCIUM 8.3 mg/dl (8.4-10.2); CARBON DIOXIDE 27 mmol/L (21-31); CHLORIDE 108 mmol/L (97-110); CREATININE 0.67 mg/dl (0.44-1.00); Estimated GFR > 60 mL/min (>60); GLUCOSE 89 mg/dl (70-220); POTASSIUM 3.3 mmol/L (3.5-5.1); SODIUM 139 mmol/L (135-144)
[2018-10-23] MEDS: morphine 2 MG INJ IV (07:12)
[2018-10-23] MEDS: ALBUTEROL/IPRATROPIUM (NEB) 3 ML AMP HHN (07:47)
[2018-10-23] MEDS: ASPIRIN 325 MG TAB PO (08:14)
[2018-10-23] MEDS: POTASSIUM CHLORIDE (SR) 20 MEQ TAB PO (08:14)
[2018-10-23] MEDS: METOPROLOL (XL) 25 MG TAB PO ×2 (08:15→21:23)
[2018-10-23] MEDS: FUROSEMIDE 20 MG TAB PO (08:30)
[2018-10-23] MEDS: LIDOCAINE 5% PATCH TD (09:00)
[2018-10-23] MEDS: OXYCODONE/ACETAMINOPHEN (5/325) TAB PO ×3 (10:55→16:07)
[2018-10-23] MEDS: ATORVASTATIN 80 MG TAB PO (21:23)
[2018-10-24] MEDS: INSULIN ASPART [NOVOLOG] 3 ML PEN SC ×5 (01:00→20:52)
[2018-10-24] MEDS: PANTOPRAZOLE SODIUM 20 MG TABEC PO ×2 (05:55→17:17)
[2018-10-24] MEDS: ALBUTEROL/IPRATROPIUM (NEB) 3 ML AMP HHN (06:05)
[2018-10-24 06:08] LABS: ADD MAN DIFF? NO
[2018-10-24 06:17] LABS: BASOPHIL # 0.1 10^3/ul (0.0-0.1); BASOPHILS % 0.6 % (0.0-2.0); EOSINOPHILS # 0.2 10^3/ul (0.0-0.5); EOSINOPHILS % 2.3 % (0.0-7.0); HEMATOCRIT 32.6 % (37.0-47.0); HEMOGLOBIN 10.3 g/dl (12.0-16.0); LYMPHOCYTES # 2.4 10^3/ul (0.8-2.9); LYMPHOCYTES % 27.4 % (15.0-51.0); MEAN CORPUSCULAR HEMOGLOBIN 27.6 pg (29.0-33.0); MEAN CORPUSCULAR HGB CONC 31.6 g/dl (32.0-37.0); MEAN CORPUSCULAR VOLUME 87.4 fl (82.0-101.0); MEAN PLATELET VOLUME 10.8 fl (7.4-10.4); MONOCYTE # 0.4 10^3/ul (0.3-0.9); MONOCYTES % 5.1 % (0.0-11.0); NEUTROPHIL # 5.4 10^3/ul (1.6-7.5); NEUTROPHILS % 62.9 % (39.0-77.0); NUCLEATED RED BLOOD CELLS # 0.1 10^3/ul (0.0-0.0); NUCLEATED RED BLOOD CELLS% 0.8 /100WBC (0.0-0.0); PLATELET COUNT 292 10^3/UL (140-415); RED BLOOD COUNT 3.73 10^6/ul (4.20-5.40); RED CELL DISTRIBUTION WIDTH 13.4 % (11.5-14.5)
[2018-10-24 06:17] LABS: WHITE BLOOD COUNT 8.6 10^3/ul (4.8-10.8)
[2018-10-24] MEDS: morphine 2 MG INJ IV (06:24)
[2018-10-24 06:40] LABS: ANION GAP 9 (5-13); BLOOD UREA NITROGEN 13 mg/dl (7-20); CALCIUM 9.1 mg/dl (8.4-10.2); CARBON DIOXIDE 26 mmol/L (21-31); CHLORIDE 105 mmol/L (97-110); CREATININE 0.72 mg/dl (0.44-1.00); Estimated GFR > 60 mL/min (>60); GLUCOSE 131 mg/dl (70-220); MAGNESIUM 2.1 mg/dl (1.7-2.5); PHOSPHORUS 3.3 mg/dl (2.5-4.9); POTASSIUM 4.1 mmol/L (3.5-5.1); SODIUM 140 mmol/L (135-144)
[2018-10-24] MEDS: ASPIRIN 325 MG TAB PO (08:31)
[2018-10-24] MEDS: LIDOCAINE 5% PATCH TD (08:32)
[2018-10-24] MEDS: METOPROLOL (XL) 25 MG TAB PO ×2 (08:35→20:52)
[2018-10-24] MEDS: POLYETHYLENE GLYCOL 17 GM PACKET PO (12:28)
[2018-10-24] MEDS: SENNA TAB PO (12:29)
[2018-10-24] MEDS: ATORVASTATIN 80 MG TAB PO (20:51)
[2018-10-24] MEDS: DOCUSATE SODIUM 100 MG CAP PO (20:51)
[2018-10-24] MEDS ORDERED: ALPRAZOLAM 1 MG TAB PO (22:00)
[2018-10-24] MEDS: morphine 4 MG/ML VIAL IV (22:02)
[2018-10-25] MEDS: ALPRAZOLAM 1 MG TAB PO (03:29)
[2018-10-25] MEDS: PANTOPRAZOLE SODIUM 20 MG TABEC PO ×2 (06:59→18:00)
[2018-10-25] MEDS: INSULIN ASPART [NOVOLOG] 3 ML PEN SC ×3 (07:25→17:25)
[2018-10-25] MEDS: ASPIRIN 325 MG TAB PO (08:29)
[2018-10-25] MEDS: METOPROLOL (XL) 25 MG TAB PO (08:31)
[2018-10-25] MEDS: LISINOPRIL 5 MG TAB PO (08:31)
[2018-10-25] MEDS: LIDOCAINE 5% PATCH TD (08:31)
[2018-10-25] MEDS: DOCUSATE SODIUM 100 MG CAP PO (08:31)
[2018-10-25] MEDS: FUROSEMIDE 20 MG INJ IV (12:20)
== END 2018-10-25 18:15 | disposition home or self-care (01) | DRG 234 ==
LOC: TEL 10-23 18:20 → 6WM 21:24 → ICU 10-16 16:24 → E/R 17:27 → 6WM 10-15 16:52 → ICU 10-16 17:02 → 6WM 10-16 19:52
PROC: 02100Z9 Bypass Coronary Artery, One Artery from Left Internal Mammary, Open Approach (ICD-10-PCS; principal; 2018-10-18 07:00)
PROC: 021109W Bypass Coronary Artery, Two Arteries from Aorta with Autologous Venous Tissue, Open Approach (ICD-10-PCS; 2018-10-18 07:00)
PROC: 06BQ4ZZ Excision of Left Saphenous Vein, Percutaneous Endoscopic Approach (ICD-10-PCS; 2018-10-18 07:00)
PROC: 5A1221Z Performance of Cardiac Output, Continuous (ICD-10-PCS; 2018-10-18 07:00)
PROC: 5A1223Z Performance of Cardiac Pacing, Continuous (ICD-10-PCS; 2018-10-18 07:00)
PROC: 4A023N7 Measurement of Cardiac Sampling and Pressure, Left Heart, Percutaneous Approach (ICD-10-PCS; 2018-10-18 07:27)
PROC: B211YZZ Fluoroscopy of Multiple Coronary Arteries using Other Contrast (ICD-10-PCS; 2018-10-18 07:27)
PROC: B215YZZ Fluoroscopy of Left Heart using Other Contrast (ICD-10-PCS; 2018-10-18 07:27)
DX: I25.110 Atherosclerotic heart disease of native coronary artery with unstable angina pectoris (principal); N17.9 Acute kidney failure, unspecified; I24.9 Acute ischemic heart disease, unspecified; E87.0 Hyperosmolality and hypernatremia; D62 Acute posthemorrhagic anemia; I97.130 Postprocedural heart failure following cardiac surgery; I50.9 Heart failure, unspecified; Y83.2 Surgical operation with anastomosis, bypass or graft as the cause of abnormal reaction of the patient, or of later complication, without mention of misadventure at the time of the procedure; E78.5 Hyperlipidemia, unspecified; E11.9 Type 2 diabetes mellitus without complications; I10 Essential (primary) hypertension; K29.50 Unspecified chronic gastritis without bleeding; R53.81 Other malaise; R94.31 Abnormal electrocardiogram [ECG] [EKG]; Z82.49 Family history of ischemic heart disease and other diseases of the circulatory system; Z79.84 Long term (current) use of oral hypoglycemic drugs
CPT/HCPCS: 36415; 36592; 36600; 71045; 78451; 80048; 80053; 80061; 81001; 81003; 82043; 82550; 82553; 82803; 82962; 83036; 83540; 83735; 83880; 84100; 84155; 84300; 84443; 84484; 85025; 85610; 85730; 86850; 86900; 86901; 86920; 87081; 93005; 93306; 93312; 93325; 93458; 93880; 93970; 94640; 97110; 97116; 97163; 97530; 99217; 99285-25; G0378

== ENCOUNTER 2018-11-30 13:36 | Observation (INO) | payer MEDICARE ==
[2018-11-30 14:07] LABS: ADD MAN DIFF? NO
[2018-11-30 14:11] LABS: ABNORMAL IP MESSAGE 1; BASOPHIL # 0.1 10^3/ul (0.0-0.1); BASOPHILS % 0.7 % (0.0-2.0); EOSINOPHILS # 3.6 10^3/ul (0.0-0.5); EOSINOPHILS % 35.9 % (0.0-7.0); HEMATOCRIT 39.7 % (37.0-47.0); HEMOGLOBIN 12.4 g/dl (12.0-16.0); LYMPHOCYTES # 3.1 10^3/ul (0.8-2.9); LYMPHOCYTES % 30.8 % (15.0-51.0); MEAN CORPUSCULAR HEMOGLOBIN 26.7 pg (29.0-33.0); MEAN CORPUSCULAR HGB CONC 31.2 g/dl (32.0-37.0); MEAN CORPUSCULAR VOLUME 85.6 fl (82.0-101.0); MEAN PLATELET VOLUME 10.3 fl (7.4-10.4); MONOCYTE # 0.3 10^3/ul (0.3-0.9); NEUTROPHIL # 2.9 10^3/ul (1.6-7.5); NEUTROPHILS % 29.4 % (39.0-77.0); PLATELET COUNT 300 10^3/UL (140-415); RED BLOOD COUNT 4.64 10^6/ul (4.20-5.40)
[2018-11-30 14:15] LABS: POSITIVE DIFF @See below
[2018-11-30 14:29] LABS: ALANINE AMINOTRANSFERASE 89 IU/L (13-69); ALBUMIN 4.4 g/dl (3.3-4.9); ALBUMIN/GLOBULIN RATIO 1.07; ALKALINE PHOSPHATASE 327 IU/L (42-121); ANION GAP 12 (5-13); ASPARTATE AMINO TRANSFERASE 28 IU/L (15-46); BILIRUBIN,INDIRECT 0.4 mg/dl (0-1.1); BILIRUBIN,TOTAL 0.4 mg/dl (0.2-1.3); BLOOD UREA NITROGEN 9 mg/dl (7-20); CALCIUM 9.9 mg/dl (8.4-10.2); CARBON DIOXIDE 24 mmol/L (21-31); CHLORIDE 107 mmol/L (97-110); CHOL/HDL RATIO 3.9 RATIO; CHOLESTEROL 111 mg/dl (100-200); CREATINE KINASE 53 IU/L (23-200); CREATININE 0.73 mg/dl (0.44-1.00); Estimated GFR > 60 mL/min (>60); GLUCOSE 114 mg/dl (70-220); HDL CHOLESTEROL 28 mg/dl (35-98); LDL CHOLESTEROL,CALCULATED 67 mg/dl; POTASSIUM 4.2 mmol/L (3.5-5.1); SODIUM 143 mmol/L (135-144); TOTAL PROTEIN 8.5 g/dl (6.1-8.1); TRIGLYCERIDES 80 mg/dl (0-149)
[2018-11-30 14:37] LABS: INR 1.07; PT RATIO 1.1
[2018-11-30 14:38] LABS: ADD UMIC YES; UR ASCORBIC ACID NEGATIVE (NEGATIVE); UR BILIRUBIN (Dip) NEGATIVE (NEGATIVE); UR BLOOD (Dip) NEGATIVE (NEGATIVE); UR CLARITY SLIGHTLY CLOUDY (CLEAR); UR COLOR YELLOW (YELLOW); UR GLUCOSE (Dip) NEGATIVE (NEGATIVE); UR KETONES (Dip) NEGATIVE (NEGATIVE); UR LEUKOCYTE ESTERASE (Dip) 1+ Leu/ul (NEGATIVE); UR NITRITE (Dip) NEGATIVE (NEGATIVE); UR RBC 4 /HPF (0-5); UR SPECIFIC GRAVITY (Dip) 1.009 (1.003-1.030); UR SQUAMOUS EPITHELIAL CELL FEW /HPF (FEW); UR TOTAL PROTEIN (Dip) NEGATIVE (NEGATIVE); UR UROBILINOGEN (Dip) NEGATIVE (NEGATIVE); UR WBC 21 /HPF (0-5)
[2018-11-30 14:40] LABS: CK INDEX 1.4; CK-MB 0.74 ng/ml (0.0-2.4); TROPONIN-I < 0.012 ng/ml (0.000-0.120)
[2018-11-30 14:48] LABS: AMPHETAMINE/METHAMPHETAMINE Negative (NEGATIVE); BARBITURATES Negative (NEGATIVE); BENZODIAZEPINES Negative (NEGATIVE); CANNABINOIDS Negative (NEGATIVE); COCAINE Negative (NEGATIVE)
[2018-11-30 14:49] LABS: OPIATES Positive (NEGATIVE)
[2018-11-30] MEDS: SOD CHLORIDE 0.9% 100 ML (15:14)
[2018-11-30] MEDS: IODIXANOL LOCM 100 ML BTL (15:14)
[2018-11-30] MEDS ORDERED: ONDANSETRON 4 MG INJ IV (15:30)
[2018-11-30] MEDS ORDERED: HYDROCODONE/APAP (5/325) TAB PO (17:00)
[2018-11-30] MEDS ORDERED: FUROSEMIDE 20 MG TAB PO (17:00)
[2018-11-30] MEDS ORDERED: NACL 0.9% 3 ML SYG IV (17:00)
[2018-11-30] MEDS: ACETAMINOPHEN 325 MG TAB PO ×2 (17:35→23:09)
[2018-11-30] MEDS: PANTOPRAZOLE (EC) 40 MG TAB PO (17:36)
[2018-11-30 18:11] LABS: HEMOGLOBIN A1C 5.4 % (0-5.9)
[2018-11-30] MEDS: METOPROLOL (XL) 25 MG TAB PO (20:32)
[2018-11-30] MEDS: ATORVASTATIN 80 MG TAB PO (20:32)
[2018-12-01] MEDS: PANTOPRAZOLE (EC) 40 MG TAB PO (05:55)
[2018-12-01 06:19] LABS: ADD MAN DIFF? NO
[2018-12-01 06:21] LABS: ABNORMAL IP MESSAGE 1; BASOPHIL # 0.1 10^3/ul (0.0-0.1); BASOPHILS % 0.9 % (0.0-2.0); EOSINOPHILS # 4.4 10^3/ul (0.0-0.5); EOSINOPHILS % 41.5 % (0.0-7.0); HEMATOCRIT 36.7 % (37.0-47.0); HEMOGLOBIN 11.5 g/dl (12.0-16.0); LYMPHOCYTES # 3.3 10^3/ul (0.8-2.9); LYMPHOCYTES % 31.1 % (15.0-51.0); MEAN CORPUSCULAR HEMOGLOBIN 26.4 pg (29.0-33.0); MEAN CORPUSCULAR HGB CONC 31.3 g/dl (32.0-37.0); MEAN CORPUSCULAR VOLUME 84.2 fl (82.0-101.0); MEAN PLATELET VOLUME 10.5 fl (7.4-10.4); MONOCYTE # 0.4 10^3/ul (0.3-0.9); MONOCYTES % 3.4 % (0.0-11.0); NEUTROPHIL # 2.4 10^3/ul (1.6-7.5); NEUTROPHILS % 22.8 % (39.0-77.0); PLATELET COUNT 281 10^3/UL (140-415); RED BLOOD COUNT 4.36 10^6/ul (4.20-5.40); RED CELL DISTRIBUTION WIDTH 14.3 % (11.5-14.5)
[2018-12-01 06:21] LABS: WHITE BLOOD COUNT 10.6 10^3/ul (4.8-10.8)
[2018-12-01 06:31] LABS: HEMOGLOBIN A1C 5.5 % (0-5.9)
[2018-12-01 06:33] LABS: POSITIVE DIFF @See below
[2018-12-01 07:32] LABS: ALANINE AMINOTRANSFERASE 72 IU/L (13-69); ALBUMIN 3.8 g/dl (3.3-4.9); ALBUMIN/GLOBULIN RATIO 1.08; ALKALINE PHOSPHATASE 247 IU/L (42-121); ANION GAP 11 (5-13); ASPARTATE AMINO TRANSFERASE 28 IU/L (15-46); BILIRUBIN,INDIRECT 0.4 mg/dl (0-1.1); BILIRUBIN,TOTAL 0.4 mg/dl (0.2-1.3); BLOOD UREA NITROGEN 12 mg/dl (7-20); CALCIUM 9.3 mg/dl (8.4-10.2); CARBON DIOXIDE 24 mmol/L (21-31); CHLORIDE 109 mmol/L (97-110); CREATININE 0.77 mg/dl (0.44-1.00); Estimated GFR > 60 mL/min (>60); GLUCOSE 129 mg/dl (70-220); SODIUM 144 mmol/L (135-144); TOTAL PROTEIN 7.3 g/dl (6.1-8.1)
[2018-12-01] MEDS: METOPROLOL (XL) 25 MG TAB PO ×2 (08:31→21:37)
[2018-12-01] MEDS: ASPIRIN (EC) 81 MG TAB PO (08:31)
[2018-12-01] MEDS: LISINOPRIL 5 MG TAB PO (08:31)
[2018-12-01] MEDS: ENOXAPARIN 30 MG/0.3 ML SYG SC (08:41)
[2018-12-01] MEDS: ATORVASTATIN 80 MG TAB PO (20:34)
[2018-12-02] MEDS: PANTOPRAZOLE (EC) 40 MG TAB PO (05:36)
[2018-12-02] MEDS: LIDOCAINE 2% (SDV) 5 ML INJ (09:55)
[2018-12-02] MEDS: PROPOFOL 20 ML (09:55)
[2018-12-02] MEDS: ASPIRIN (EC) 81 MG TAB PO (11:42)
[2018-12-02] MEDS: LISINOPRIL 5 MG TAB PO (11:43)
[2018-12-02] MEDS: METOPROLOL (XL) 25 MG TAB PO (11:43)
[2018-12-02] MEDS: ENOXAPARIN 30 MG/0.3 ML SYG SC (11:52)
[2018-12-02 12:10] LABS: HAAIG REFLEX REFLEX FILED
[2018-12-03 00:34] LABS: HEPATITIS B SURFACE ANTIGEN NEGATIVE (NEGATIVE)
[2018-12-03 00:52] LABS: HEPATITIS B CORE ANTIBODY NEGATIVE (NEGATIVE); HEPATITIS C VIRAL ANTIBODY NEGATIVE (NEGATIVE)
[2018-12-05 13:31] LABS: ANA SCREEN NEGATIVE (NEGATIVE)
== END 2018-12-02 19:34 | disposition home or self-care (01) ==
LOC: TEL 12-01 06:47 → E/R 13:36 → TEL 15:13
DX: R41.0 Disorientation, unspecified (principal); K29.50 Unspecified chronic gastritis without bleeding; I25.10 Atherosclerotic heart disease of native coronary artery without angina pectoris; Z95.1 Presence of aortocoronary bypass graft; D64.9 Anemia, unspecified; E78.5 Hyperlipidemia, unspecified; I11.0 Hypertensive heart disease with heart failure; I50.9 Heart failure, unspecified; Z79.82 Long term (current) use of aspirin
CPT/HCPCS: 36415; 70450; 70496; 70498; 70551; 71045; 76700; 80053; 80061; 80307; 81001; 82550; 82553; 83036; 84484; 85025; 85610; 85730; 86038; 86704; 86709; 86803; 87086; 87340; 88305; 88312; 93005; 93308; 97161; 99285-25; G0378